=== PATIENT | female | born 2000 | race African-American/Black ===

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

== ENCOUNTER 2018-03-28 06:08 | Emergency (ER) | payer OTHER ==
[2018-03-28 06:29] VITALS: TEMP 97.7; BMI 25.8
[2018-03-28] MEDS ORDERED: ALBUTEROL SO4 2.5/IPRATROPIUM 0.5 INH SOL 3 ML VIAL.NEB. NEB ONE ×2 (06:39→06:51)
[2018-03-28] MEDS ORDERED: predniSONE 20 MG TABLET (UD) PO ONE (06:39)
--- NOTE | 2018-03-28 06:46 | PDOC ---
Attending Attestation - Resident Resident Name: Mich Kraft - ED Attending Attestation I have performed the following: I have examined & evaluated the patient, The case was reviewed & discussed with the resident, I agree w/resident's findings & plan - HPI HPI: 03/28/18 06:45 Pt comes with asthma exacerbation. She ran out of asthma meds at home. She has a significant psych and drug abuse history, which is not the issue today. 03/28/18 19:59 - Physicial Exam PE: 03/28/18 06:45 Agree with resident exam - Medical Decision Making 03/28/18 06:45 Pt will be treated with asthma meds. U preg pending. Pt will be signed out to the day ER docs.
--- NOTE | 2018-03-28 06:48 | PDOC ---
History of Present Illness - General Stated Complaint: DIFFICULTY BREATHING Time Seen by Provider: 03/28/18 06:26 - History of Present Illness Initial Comments: 03/28/18 06:39 17 yo F with h/o asthma, nicotine dependence, polysubstance abuse, bipolar disorder, schitzoaffective disorder who p/w SOB, cough, and wheezing. Patient reports acute onset of wheezing beginning yesterday morning, despite increased daily duoneb therapy Q4 hours. Also endorses cough x 2 days with clear sputum production. Also endorses non radiating, chest tightness this AM. No identifiable triggers or alleviators. No home O2 requirements. Denies h/o ICU hospitalizations, or prior intubations. Patient denies N/V, F/C, hemoptysis, leg pain/swelling, urinary complaints, abdominal pain, diarrhea, constipation, lightheadedness, weakness, sensory changes. PMHx: as noted above ROS: as noted SHx: Tobacco use 1/4 ppd for 2 years. Daily Marijuanna use. Daily Etoh Allergies: NKDA PMD: Mickie Acevedo Past History - Past Medical History Allergies/Adverse Reactions: Allergies Allergy/AdvReac Type Severity Reaction Status Date / Time Fish Containing Products Allergy Itching Verified 03/28/18 06:25 nut - unspecified AdvReac Itching Verified 03/28/18 06:25 FRUIT Allergy Uncoded 12/20/17 03:52 SEAFOOD Allergy Itching Uncoded 12/20/17 03:52 Home Medications: Ambulatory Orders Albuterol Sulfate Inhaler - [Ventolin HFA Inhaler -] 2 puff IH Q4H PRN 07/18/17 Buspirone HCl [Buspar -] 10 mg PO BID 07/18/17 Buspirone HCl [Buspar -] 15 mg PO BID #60 tablet 07/22/17 Albuterol 0.083% Nebulizer Delia [Ventolin 0.083% Nebulizer Soln -] 1 neb NEB Q6H PRN #25 vial 07/31/17 Azithromycin [Zithromax 250mg Tablets -] 250 mg PO UTDICT #6 tab 07/31/17 Nebulizer [Aeroeclipse II] 1 each MC QID #1 each 07/31/17 Prednisone [Prednisone 50 MG TABLETS] 50 mg PO DAILY #4 tablet 07/31/17 Azithromycin [Zithromax 250mg Tablets -] 250 mg PO UTDICT #6 tab 12/20/17 Prednisone [Prednisone 50 MG TABLETS] 50 mg PO DAILY #4 tablet 12/20/17 Prednisone [Prednisone 50 MG TABLETS] 50 mg PO DAILY 4 Days #4 tablet MDD 1 tab 03/28/18 Anemia: No Asthma: Yes Cancer: No Cardiac Disorders: No CVA: No COPD: No CHF: No DVT: No Dementia: No Diabetes: No GI Disorders: No Disorders: No HTN: No Hypercholesterolemia: No Kidney Stones: No Liver Disease: No Seizures: No Thyroid Disease: No - Surgical History Abdominal Surgery: No Appendectomy: No Cardiac Surgery: No Cholecystectomy: No Lung Surgery: No Neurologic Surgery: No Orthopedic Surgery: No - Reproductive History PID: No - Immunization History Immunization Up to Date: Yes - Suicide/Smoking/Psychosocial Hx Smoking History: Current some day smoker Have you smoked in the past 12 months: Yes Number of Cigarettes Smoked Daily: 5 Cigars Per Day: 2 Information on smoking cessation initiated: No 'Breaking Loose' booklet given: 07/18/17 Hx Alcohol Use: No Drug/Substance Use Hx: No Substance Use Type: Alcohol, Cocaine, Marijuana Hx Substance Use Treatment: Yes (patient is attending [facility],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 No weakness. HEAD, EYES, EARS, NOSE AND THROAT: No change in vision. No ear pain or discharge. No sore throat. CARDIOVASCULAR: +chest tightness and shortness of breath RESPIRATORY: +cough, wheezing. No hemoptysis. GASTROINTESTINAL: No nausea, vomiting, diarrhea or constipation. GENITOURINARY: No dysuria, frequency, or change in urination. MUSCULOSKELETAL: No joint or muscle swelling or pain. No neck or back pain. SKIN: No rash NEUROLOGIC: No headache, vertigo, loss of consciousness, or change in strength/ sensation. ENDOCRINE: No increased thirst. No abnormal weight change HEMATOLOGIC/LYMPHATIC: No anemia, easy bleeding, or history of blood clots. ALLERGIC/IMMUNOLOGIC: No hives or skin allergy. *Physical Exam - Vital Signs Last Vital Signs Temp Pulse Resp BP Pulse Ox 97.7 F 88 20 142/58 99 03/28/18 06:26 03/28/18 06:26 03/28/18 06:26 03/28/18 06:26 03/28/18 06:26 - Physical Exam Comments: 03/28/18 06:49 GENERAL: Awake, alert, and fully oriented, in no acute distress HEAD: No signs of trauma, normocephalic, atraumatic EYES: PERRLA, EOMI, sclera anicteric, conjunctiva clear ENT: Hearing grossly normal, nares patent, oropharynx clear without exudates. Moist mucosa NECK: Normal ROM, supple, no lymphadenopathy, JVD, or masses LUNGS: Diffuse expiratory rhonci. Neg rales. HEART: Regular rate and rhythm, normal S1 and S2, no murmurs, rubs or gallops, peripheral pulses normal and equal bilaterally. EXTREMITIES : Normal inspection, Normal range of motion, no edema. No clubbing or cyanosis. SKIN: Warm, Dry, normal turgor, no rashes or lesions noted Medical Decision Making - Medical Decision Making 03/28/18 06:47 17 yo F with h/o asthma, polysubstance abuse, bipolar disorder, schitzoaffective disorder who p/w SOB, cough, and wheezing x 24 hours. VSS, AF. + Diffuse expiratory rhonci. Patient with probable mild intermittent asthma vs. COPD exacerbation. Will consider viral URI syndrome vs. PNA. PERC NEG PE. ED Course: 03/28/18 06:50 Peak Exp Flow Measure Duonebs,Prednisone 60 mg BHCG CXR 03/28/18 07:07 Patient signed out to day team. Pending CXR. If CXR nml, patient can be discharged home with steroids already sent to pharmacy, and follow up with pulmonary. *DC/Admit/Observation/Transfer Diagnosis at time of Disposition: Asthma exacerbation Qualifiers: Asthma severity: mild Asthma persistence: intermittent Qualified Code(s): J45.21 - Mild intermittent asthma with (acute) exacerbation Asthma Qualifiers: Asthma severity: mild Asthma persistence: intermittent Asthma complication type : with acute exacerbation Qualified Code(s): J45.21 - Mild intermittent asthma with (acute) exacerbation - Discharge Dispostion Condition at time of disposition: Stable Decision to Admit order: No - Prescriptions Prescriptions: Prednisone [Prednisone 50 MG TABLETS] 50 mg PO DAILY 4 Days #4 tablet MDD 1 tab - Referrals Referrals: Didier Luna MD [Staff Physician] - - Patient Instructions Printed Discharge Instructions: Asthma -- Adult Additional Instructions: Please return to the emergency department with any new or worsening symptoms or concerns. Please follow up with your primary care physician within 72 hours. Please follow up with pulmonary physician within one week. Please take Prednisone one time a day for four days. - Post Discharge Activity - Attestations Physician Attestion: 03/28/18 06:54 I attest to the information provided in this note
[2018-03-28] MEDS ORDERED: predniSONE 20 MG TABLET (UD) ONE (06:50)
--- NOTE | 2018-03-28 07:12 | PDOC ---
*Physical Exam - Vital Signs Last Vital Signs Temp Pulse Resp BP Pulse Ox 97.7 F 88 20 142/58 99 03/28/18 06:26 03/28/18 06:26 03/28/18 06:26 03/28/18 06:26 03/28/18 06:26 - Physical Exam General Appearance: Yes: Appropriately Dressed. No: Apparent Distress HEENT: positive: Normal Voice Respiratory/Chest: positive: Lungs Clear, Normal Breath Sounds. negative: Respiratory Distress, Accessory Muscle Use, Labored Respiration, Rapid RR, Wheezing Cardiovascular: positive: Regular Rhythm, Regular Rate ED Treatment Course - Medications Given in the ED: ED Medications Discontinued Medications Generic Name Dose Route Start Last Admin Trade Name Freq PRN Reason Stop Dose Admin Albuterol/Ipratropium 3 amp 03/28/18 06:39 03/28/18 06:59 Duoneb - NEB 03/28/18 06:40 3 amp ONCE ONE Administration Prednisone 60 mg 03/28/18 06:39 03/28/18 06:59 Deltasone - PO 03/28/18 06:40 60 mg ONCE ONE Administration Medical Decision Making - Medical Decision Making 03/28/18 07:07 Received sign out from resident Dr. Kraft. In short, pt is a 17 y /o asthmatic female known to this department presenting for likely acute asthma exacerbation. Pt was tachypenic and wheezing without hypoxia on arrival. Pt received multiple Duonebs and Predisone. Symptoms have resolved. Awaiting UPreg and CXR to evaluate for pneumonia. CXR unremarkable for infiltrates or other obvious signs of acute cardiopulmonary process. Observed walking throughout the department without distress. Unlabored breathing with clear lung sounds on my examination. Pt stable for discharge. Prescribed Ventolin albuterol ampules, albuterol MDI, and Medrol Dose Pack. Referral placed for outpatient pulmonary f/u. *DC/Admit/Observation/Transfer Diagnosis at time of Disposition: Asthma exacerbation Qualifiers: Asthma severity: mild Asthma persistence: intermittent Qualified Code(s): J45.21 - Mild intermittent asthma with (acute) exacerbation Asthma Qualifiers: Asthma severity: mild Asthma persistence: intermittent Asthma complication type : with acute exacerbation Qualified Code(s): J45.21 - Mild intermittent asthma with (acute) exacerbation - Discharge Dispostion Disposition: HOME Condition at time of disposition: Good Decision to Admit order: No - Prescriptions Prescriptions: Albuterol Sulfate 0.5% [Ventolin 0.5% -] 1 neb IH Q4H PRN #30 vial PRN Reason: Wheezing Albuterol Sulfate Inhaler - [Ventolin HFA Inhaler -] 1 - 2 inh PO Q4H PRN #1 inhaler PRN Reason: Wheezing Methylprednisolone [Medrol Dose Phil] 4 mg PO ASDIR #21 tablet - Referrals Referrals: Didier Luna MD [Staff Physician] - - Patient Instructions Printed Discharge Instructions: Asthma -- Adult Additional Instructions: Please return to the emergency department with any new or worsening symptoms or concerns. Please follow up with your primary care physician within 72 hours. Please follow up with pulmonary physician within one week. I have placed a referral for you to see a manager administrative services within our system. The number is in this packet. You will need to call to make an appointment. Please take Medrol dose pack and Albuterol as prescribed. Print Language: BELGIAN - Post Discharge Activity
[2018-03-28 09:45] VITALS: BP 122/78; PULSE 85
== END 2018-03-28 09:37 | disposition home or self-care (01) ==
LOC: JER 06:08
PROC: 3E0F7GC Introduction of Other Therapeutic Substance into Respiratory Tract, Via Natural or Artificial Opening (ICD-10-PCS; principal; 2018-03-28)
DX: J45.21 Mild intermittent asthma with (acute) exacerbation (principal); F17.210 Nicotine dependence, cigarettes, uncomplicated; I31.9 Disease of pericardium, unspecified; F25.9 Schizoaffective disorder, unspecified; F10.10 Alcohol abuse, uncomplicated; F14.10 Cocaine abuse, uncomplicated; F12.10 Cannabis abuse, uncomplicated
CPT/HCPCS: 71046-TC-FY; 84703; 94640; 99282-25; J7620

== ENCOUNTER 2018-06-15 09:11 | Emergency (ER) | payer OTHER ==
[2018-06-15 09:26] VITALS: BP 117/68; PULSE 99; TEMP 98.5; BMI 22.9
[2018-06-15] MEDS ORDERED: DEXAMETHASONE LIQUID 0.5 MG/5 ML 240 ML BULK BOTTLE PO ONE (11:08)
[2018-06-15] MEDS ORDERED: ALBUTEROL SO4 2.5/IPRATROPIUM 0.5 INH SOL 3 ML VIAL.NEB. NEB ONE (11:10)
[2018-06-15] MEDS ORDERED: DEXAMETHASONE SOD PHOSPHATE 4 MG/1 ML VIAL ONE (11:10)
[2018-06-15] MEDS ORDERED: DEXAMETHASONE SOD PHOSPHATE 10 MG/1 ML VIAL ONE (11:11)
--- NOTE | 2018-06-15 11:14 | PDOC ---
History of Present Illness - General Chief Complaint: Cold Symptoms Stated Complaint: Cold Symptoms Time Seen by Provider: 06/15/18 11:06 - History of Present Illness Initial Comments: 06/15/18 11:09 18-year-old female with a past medical history significant for anxiety and asthma presents for evaluation of cough and upper respiratory symptoms 5 days no systemic symptoms Past History - Past Medical History Allergies/Adverse Reactions: Allergies Allergy/AdvReac Type Severity Reaction Status Date / Time Fish Containing Products Allergy Itching Verified 06/15/18 09:22 nut - unspecified AdvReac Itching Verified 06/15/18 09:22 FRUIT Allergy Uncoded 06/15/18 09:22 SEAFOOD Allergy Itching Uncoded 06/15/18 09:22 Home Medications: Ambulatory Orders Albuterol Sulfate Inhaler - [Ventolin HFA Inhaler -] 1 - 2 inh PO Q4H #1 inhaler 06/15/18 Anemia: No Asthma: Yes Cancer: No Cardiac Disorders: No CVA: No COPD: No CHF: No DVT: No Dementia: No Diabetes: No GI Disorders: No Disorders: No HTN: No Hypercholesterolemia: No Kidney Stones: No Liver Disease: No Seizures: No Thyroid Disease: No - Surgical History Abdominal Surgery: No Appendectomy: No Cardiac Surgery: No Cholecystectomy: No Lung Surgery: No Neurologic Surgery: No Orthopedic Surgery: No - Reproductive History PID: No - Immunization History Immunization Up to Date: Yes - Suicide/Smoking/Psychosocial Hx Smoking History: Current some day smoker Have you smoked in the past 12 months: Yes Number of Cigarettes Smoked Daily: 5 Cigars Per Day: 2 Information on smoking cessation initiated: No 'Breaking Loose' booklet given: 07/18/17 Hx Alcohol Use: No Drug/Substance Use Hx: Yes (MARIJUANA) Substance Use Type: Alcohol, Cocaine, Marijuana Hx Substance Use Treatment: Yes (patient is attending [facility],never being treated in correction inpatient) Review of Systems - Review of Systems Constitutional: Yes: Malaise. No: Chills, Fever, Night Sweats Respiratory: Yes: Cough *Physical Exam - Vital Signs Last Vital Signs Temp Pulse Resp BP Pulse Ox 98.5 F 99 H 18 117/68 100 06/15/18 09:22 06/15/18 09:22 06/15/18 09:22 06/15/18 09:22 06/15/18 09:22 - Physical Exam Comments: 06/15/18 11:12 HEAD: NC/AT EYES: Conjuntiva clear Ears: Canals and TM's normal NOSE: No d/c THROAT: Moist mucous membrances, oral pharanx clear, uvula midline NECK: Supple without adenopathy CARDIAC: S1 S2 LUNGS: Diffuse wheezing but mild ABDOMEN: Soft NT ND MS: Full ROM in all joints without edema NEUROLOGIC: No gross sensory or motor deficits, NVID SKIN: Normal color and temperature no lesions or rashes Medical Decision Making - Medical Decision Making 06/15/18 11:47 Wheezing cleared after 2 DuoNeb's *DC/Admit/Observation/Transfer Diagnosis at time of Disposition: Asthmatic bronchitis - Discharge Dispostion Disposition: HOME Condition at time of disposition: Improved Decision to Admit order: No - Prescriptions Prescriptions: Albuterol Sulfate Inhaler - [Ventolin HFA Inhaler -] 1 - 2 inh PO Q4H #1 inhaler - Referrals Referrals: Didier Luna MD [Staff Physician] - - Patient Instructions Printed Discharge Instructions: DI for Acute Bronchitis Additional Instructions: Continue your home albuterol as directed. You're given a steroid in the emergency room. Please follow-up with pulmonology in 2-3 days for further evaluation and treatment options and take the antibiotics as directed. - Post Discharge Activity
[2018-06-15] MEDS ORDERED: ALBUTEROL SO4 2.5/IPRATROPIUM 0.5 INH SOL 3 ML VIAL.NEB. NEB SCH (11:15)
== END 2018-06-15 11:54 | disposition home or self-care (01) ==
LOC: JERFT 09:11
DX: J45.909 Unspecified asthma, uncomplicated (principal); F17.210 Nicotine dependence, cigarettes, uncomplicated
CPT/HCPCS: 99281-25

== ENCOUNTER 2021-09-05 13:28 | Emergency (ER) | payer SELFPAY ==
[2021-09-05 14:04] VITALS: BP 103/56; PULSE 79; TEMP 98.1; BMI 28.8
== END 2021-09-05 14:40 | disposition left against medical advice (07) ==
LOC: JER 13:28
DX: R05.1 Acute cough (principal)
CPT/HCPCS: 99281-25

== ENCOUNTER 2023-06-11 21:53 | Observation (INO) | payer OTHER ==
[2023-06-11 22:05] VITALS: BMI 25.1
[2023-06-11] MEDS ORDERED: SODIUM CHLORIDE 0.9% 500 ML INFUS.BAG IV ONE (22:35)
[2023-06-11 23:30] LABS: BASO % 0.3 % (0-2.0); EOS % 1.9 % (0-4.5); HEMATOCRIT 33.7 % (32.4-45.2); HEMOGLOBIN 10.8 GM/dL (10.7-15.3); LYMPH % 19.4 % (8-40); MCH 29.6 pg (25.7-33.7); MCHC 32.2 g/dl (32.0-36.0); MEAN CELL VOLUME 91.8 fl (80-96); MEAN PLT VOLUME 9.4 fl (7.5-11.1); MONO % 5.2 % (3.8-10.2); NEUT % 73.2 % (42.8-82.8); PLATELET COUNT 240 10^3/uL (134-434); RBC 3.67 M/mm3 (3.60-5.2); RDW 13.7 % (11.6-15.6); WHITE BLOOD COUNT 11.3 K/mm3 (4.0-10.0)
[2023-06-11 23:38] LABS: POTASSIUM 4.2 mmol/L (3.5-5.1)
[2023-06-11 23:40] LABS: ALBUMIN 2.8 g/dl (3.4-5.0); BLOOD UREA NITROGEN 8.3 mg/dL (7-18); CALCIUM 8.8 mg/dL (8.5-10.1)
[2023-06-11 23:43] LABS: CREATININE 0.6 mg/dL (0.55-1.3)
[2023-06-11 23:45] LABS: BILIRUBIN,TOTAL 0.3 mg/dL (0.2-1); TOT PROT 6.1 g/dl (6.4-8.2)
[2023-06-12 02:09] LABS: HCG,QUALITATIVE URINE Positive
[2023-06-12 02:12] LABS: EPI CELLS 13 /uL (0-25.1); HYALINE CASTS 5 /uL (0-3.1); URINE APPEARANCE CLEAR; URINE BACTERIA >9,000 /uL (0-1359); URINE BILIRUBIN NEGATIVE (NEGATIVE); URINE COLOR YELLOW; URINE GLUCOSE (UA) NEGATIVE (NEGATIVE); URINE KETONE 2+ (NEGATIVE); URINE LEUK ESTERASE 1+ (NEGATIVE); URINE NITRITE NEGATIVE (NEGATIVE); URINE PROTEIN TRACE (NEGATIVE); URINE WBC 175 /uL (0-25.8)
[2023-06-12 03:59] LABS: URINE RBC 18.5 /uL (0-23.9)
[2023-06-12] MEDS ORDERED: CEPHALEXIN MONOHYDRATE 500 MG CAPSULE (UD) PO ONE (04:06)
[2023-06-12] MEDS ORDERED: CEPHALEXIN 250 MG/5 ML ORAL SUSPENSION PO ONE (10:16)
[2023-06-12 10:39] VITALS: BP 111/56; PULSE 87; RESP 19; TEMP 98.2
== END 2023-06-12 03:59 | disposition home or self-care (01) ==
LOC: JER 21:53 → JLDR 06-12 02:15
PROVIDERS: ADMIT Obstetrics & Gynecology; ATTEND Obstetrics & Gynecology
PROC: 3E0337Z Introduction of Electrolytic and Water Balance Substance into Peripheral Vein, Percutaneous Approach (ICD-10-PCS; principal; 2023-06-12)
DX: Z13.30 Encounter for screening examination for mental health and behavioral disorders, unspecified (principal); Z69.11 Encounter for mental health services for victim of spousal or partner abuse; O99.332 Smoking (tobacco) complicating pregnancy, second trimester; Z3A.26 26 weeks gestation of pregnancy; O09.32 Supervision of pregnancy with insufficient antenatal care, second trimester; F10.99 Alcohol use, unspecified with unspecified alcohol-induced disorder; J45.909 Unspecified asthma, uncomplicated; F12.90 Cannabis use, unspecified, uncomplicated; F31.9 Bipolar disorder, unspecified; F41.9 Anxiety disorder, unspecified; F25.9 Schizoaffective disorder, unspecified; Z91.013 Allergy to seafood; Z91.018 Allergy to other foods
CPT/HCPCS: 36415; 59025; 76815; 80053; 81003; 84703; 85025; 87086; 87186; 93005; 93010; 96360; 99285-25; G0378